=== PATIENT | male | born 1950 | race Caucasian/White ===

== ENCOUNTER → 2016-07-10 | Day surgery (SDC) | payer OTHER ==
[~2016-07-10] VITALS: Ht 185.4 cm; Wt 78.0 kg
[~2016-07-10] MED LIST: ADVAIR 250-501 EACH INH; ASPIRIN EC81 MG PO; AUGMENTIN 875-1 EACH PO; BACTRIM DS1 TAB PO; COPAXONE20 MG SUB-Q; DELTASONE10 MG PO; EPIPEN0.3 MG IM; FLONASE 50 MCG/16 GM NOSE; LIPITOR40 MG PO; LOPRESSOR25 MG PO; MULTIVITAMINS1 EAC2 PO; NORCO 5-325 TA1 EACH PO; PRILOSEC20 MG PO; PROAIR HFA8.5 GM INH; RAMIPRIL2.5 MG PO; SUPREP BOWEL P354 ML; TYLENOL325 MG PO
--- NOTE | ~2016-07-10 | OR ---
PATIENT'S NAME: BLANE VELAZCO [facility] AGE: 65 Y [address] 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 POSTOPERATIVE DIAGNOSIS: Left posterior nasal polyp with nasal airway obstructive symptoms-persistent. ANESTHESIA: General. SURGERY: Includes left nasal endoscopy with removal of left posterior nasal polyp (posterior ethmoidectomy). HISTORY: Blane Velazco is a 65-year-old gentleman who has a history of chronic rhinosinusitis. CT scan demonstrated bilateral nasal polyposis and maxillary and ethmoid sinus disease. The patient underwent previous nasal surgery include bilateral FESS/septoplasty in early May. The patient had recurrent/persistent symptoms regarding the left nasal airway. Nasal endoscopy in the office confirmed a posterior nasal polyp on the left side. Recommendations for the above procedure. The patient understood the risks and benefits. Incidentally, we also discussed examining the right side of the nose to make sure there is no underlying recurrence of polyps as well. The patient wished to proceed. DESCRIPTION OF PROCEDURE: The patient brought to the operative room and placed supine position under general anesthesia without incident. The eyes were protected during the operative course and noted to be within normal limits at the termination of the surgery. The nasal endoscope was introduced in left nasal cavity. The large posterior ethmoid polyp was identified and injected with 4 mL of 1% lidocaine with 1:100,000 epinephrine. At this point, I examined the right nasal cavity, noted a small recurrent nasal polyp on the lateral nasal wall. This was cauterized with the suction cautery. Returning to the left nasal cavity, the 4-0 shaver device was then used to remove this large posterior ethmoid polyp extending into the nasopharynx. Blood loss was 25 mL. The suction cautery was then used to control some bleeding along the ethmoid edges. The nasopharynx was suctioned clear of blood. The bilateral nasal cavities were irrigated with bacitracin antibiotic solution. Bactroban ointment was placed in both ethmoid cavities and Telfa packs were used to PATIENT'S NAME: BLANE VELAZCO [facility] AGE: 65 Y [address] ROOM: [place] [id number] LOCATION: [facility] [place] DATE: 07/10/2016 OR/Procedure Report DISCHARGE DATE: FAMILY PHYSICIAN: Jesse Rouse MD ATTENDING PHYSICIAN: Keon Morris control any mild hemorrhage as with extubation. The patient tolerated procedure well. The oropharynx was suctioned clear. The patient was extubated and taken recovery stable condition. KEON MORRIS MD DGO/modl /[id number] d: 07/10/16 1416 t: 07/17/16 0807, OPERATIVE SUMMARY
== END | disposition disaster alternative care site (69) ==
LOC: GPOC 07-08 11:00 → GSDC 07-08 11:00
PROC: 09BV4ZZ Excision of Left Ethmoid Sinus, Percutaneous Endoscopic Approach (ICD-10-PCS; principal; 2016-07-10)
DX: J33.0 Polyp of nasal cavity (principal); J32.9 Chronic sinusitis, unspecified; J34.89 Other specified disorders of nose and nasal sinuses; I25.10 Atherosclerotic heart disease of native coronary artery without angina pectoris; I10 Essential (primary) hypertension; J44.9 Chronic obstructive pulmonary disease, unspecified; G35 Multiple sclerosis; K21.9 Gastro-esophageal reflux disease without esophagitis; N17.9 Acute kidney failure, unspecified; Z87.891 Personal history of nicotine dependence; Z88.0 Allergy status to penicillin; Z90.49 Acquired absence of other specified parts of digestive tract; Z98.890 Other specified postprocedural states; Z79.82 Long term (current) use of aspirin; Z79.899 Other long term (current) drug therapy
CPT/HCPCS: A9270; J7120

== ENCOUNTER → 2016-10-21 | Day surgery (SDC) | payer OTHER ==
[~2016-10-21] VITALS: Ht 185.4 cm; Wt 83.4 kg
== END | disposition disaster alternative care site (69) ==
LOC: GPOC 10-16 14:00 → GEND 07:08 → GPOC 14:00
PROC: 0DBP8ZX Excision of Rectum, Via Natural or Artificial Opening Endoscopic, Diagnostic (ICD-10-PCS; principal; 2016-10-21)
PROC: 0DBF8ZX Excision of Right Large Intestine, Via Natural or Artificial Opening Endoscopic, Diagnostic (ICD-10-PCS; 2016-10-21)
DX: Z12.11 Encounter for screening for malignant neoplasm of colon (principal); K62.1 Rectal polyp; K57.30 Diverticulosis of large intestine without perforation or abscess without bleeding; I10 Essential (primary) hypertension; E78.00 Pure hypercholesterolemia, unspecified; I25.10 Atherosclerotic heart disease of native coronary artery without angina pectoris; Z98.41 Cataract extraction status, right eye; Z98.42 Cataract extraction status, left eye; Z96.1 Presence of intraocular lens; Z95.5 Presence of coronary angioplasty implant and graft; Z79.899 Other long term (current) drug therapy; Z98.890 Other specified postprocedural states
CPT/HCPCS: J2001; J7030